=== PATIENT | female | born 1990 | race Caucasian/White ===

== ENCOUNTER 2017-06-20 22:58 | Emergency (ER) | payer OTHER ==
[2010-10-06 08:13] VITALS: BMI 23.6
[~2017-06-20 22:58] MED LIST: FERROUS SULFAT325 MG PO; MOTRIN600 MG PO; PERCOCET 5/3251 TA1 PO
[2017-06-20 23:54] LABS: APPEARANCE CLOUDY (CLEAR); BILIRUBIN NEGATIVE (NEGATIVE); COLOR RED (YELLOW); GLUCOSE NEGATIVE (NEGATIVE); KETONE NEGATIVE (NEGATIVE); LEUKOCYTE ESTERASE 2+ (NEGATIVE); NITRITE NEGATIVE (NEGATIVE); PROTEIN 1+ mg/dL (NEGATIVE); SPECIFIC GRAVITY 1.015 (1.005-1.020); UROBILINOGEN NORMAL (NORMAL)
[2017-06-20 23:55] LABS: BACTERIA FEW /hpf (NONE SEEN); EPITHELIAL CELLS 0-5 /hpf (0-5); RED CELLS - URINE 25-50 /hpf (0-5)
== END 2017-06-21 02:30 | disposition home or self-care (01) ==
LOC: D.ER 22:58
PROVIDERS: Emergency Medicine Emergency Medical Services
DX: O20.0 Threatened abortion (principal); Z3A.10 10 weeks gestation of pregnancy